=== PATIENT | male | born 2000 | race Caucasian/White ===

== ENCOUNTER 2023-11-30 13:27 | Outpatient (CLI) | payer BC, SELFPAY ==
[2023-11-30 10:30] LABS: Basophils Absolute Auto 0.1 K/mm3 (0.0-0.1); Basophils Percent Auto 1.1 % (0.2-1.2); Eosinophils Absolute Auto 0.2 K/mm3 (0-0.3); Eosinophils Percent Auto 2.4 % (0-4.4); Hematocrit 51.8 % (42.0-52.0); Hemoglobin 16.9 g/dL (14.0-18.0); Immature Granulocyte Absolute 0.05 K/mm3 (0.00-0.031); Immature Granulocyte Percent A 0.7 % (0-0.5); Lymphocytes Absolute Auto 1.78 K/mm3 (0.9-3.2); Lymphocytes Percent Auto 24.9 % (18.3-44.2); Mean Corpuscular HGB Conc 32.6 g/dl (32-36); Mean Corpuscular Hemoglobin 25.5 pg (26-34); Mean Corpuscular Volume 78.1 fl (80-100); Mean Platelet Volume 10.9 fl (7.4-10.4); Monocytes Absolute Auto 0.7 K/mm3 (0.1-0.6); Monocytes Percent Auto 9.2 % (2.6-8.5); Neutrophils Absolute Auto 4.4 K/mm3 (1.3-6.7); Neutrophils Percent Auto 61.7 % (45.5-73.1); Platelet Count Result 240 k/mm3 (150-375); Red Blood Count 6.63 M/mm3 (4.6-6.20); Red Cell Distribution Width 13.2 % (11.5-14.5); White Blood Count 7.2 K/mm3 (4.5-10.0)
[2023-11-30 10:44] LABS: Alanine Aminotransferase 41 U/L (6-50); Albumin Level 5.1 g/dL (3.5-5.1); Alkaline Phosphatase 92 U/L (38-126); Anion Gap 9 mmol/L (4-12); Aspartate Amino Transferase 29 U/L (17-59); Bilirubin,Total 0.6 mg/dL (0.2-1.3); Blood Urea Nitrogen 19 mg/dL (9-20); Calcium 9.9 mg/dL (8.4-10.2); Carbon Dioxide 26 mmol/L (22-30); Chloride 104 mmol/L (98-107); Cholesterol 216 mg/dL (0-200); Estimated Glomerular Filt Rate > 60; Glucose 99 mg/dL (65-110); HDL Direct 44 mg/dL; Potassium 4.1 mmol/L (3.4-5.0); Sodium 139 mmol/L (137-145); Triglycerides 144 mg/dL (<150)
[2023-11-30 10:55] LABS: LDL Cholesterol Direct 142 mg/dL
[2023-11-30 14:17] LABS: Iron 79 ug/dL (49-181)
[2023-11-30 14:26] LABS: Percent Iron Saturation 19 % (20-50)
[2023-12-04 08:18] LABS: Thyroid Peroxidase Antibodies 1 IU/mL (<9)
[2023-12-04 14:59] LABS: Protein, Total 7.9 g/dL (6.1-8.1)
[2023-12-05 13:53] LABS: Albumin 4.7 g/dL (3.8-4.8); Alpha 1 Globulin 0.3 g/dL (0.2-0.3); Alpha 2 Globulin 0.7 g/dL (0.5-0.9); Beta 1 Globulin 0.5 g/dL (0.4-0.6); Gamma Globulin 1.3 g/dL (0.8-1.7)
== END 2023-11-30 13:28 | disposition home or self-care (01) ==
PROVIDERS: PCP Physician Assistant; Visit Provider Physician Assistant
DX: Z00.00 Encounter for general adult medical examination without abnormal findings (principal); R71.8 Other abnormality of red blood cells; R77.8 Other specified abnormalities of plasma proteins; E03.9 Hypothyroidism, unspecified
CPT/HCPCS: 36415; 80053; 80061; 82728; 83540; 83550; 84155; 84165; 84443; 85025; 86376